=== PATIENT | female | born 2000 | race Two or more races ===

== ENCOUNTER 2022-12-28 15:31 | Outpatient (REF) | payer OTHER, SELFPAY ==
--- NOTE | ~2022-12-28 | MR_ITS ---
EXAMINATION: MR KNEE WITHOUT CONTRAST, RIGHT CLINICAL INFORMATION: Right knee pain. COMPARISON: None available. TECHNIQUE: MRI of the knee without contrast was performed using routine sequences on a high-field scanner. FINDINGS: MENISCI: Medial Meniscus: Intact. Lateral Meniscus: Intact. LIGAMENTS: Cruciate: Intact. Collateral: Intact. EXTENSOR MECHANISM: Intact quadriceps and patellar tendons. No patella moe. TT-TG this is within normal limits measuring up to 1.3 similar. Mild edema within the superolateral aspect of Hoffa's fat pad, which can be seen in the setting of patellar tendon lateral femoral condyle fraction syndrome. ARTICULAR CARTILAGE/BONE: Patellofemoral Compartment: Intact articular cartilage. Medial Compartment: Intact articular cartilage. Lateral Compartment: Intact articular cartilage. JOINT FLUID AND BURSAE: Trace joint effusion. MR/MR knee RT wo con IMPRESSION: 1. No acute meniscal or ligamentous injury. 2. Mild edema within the superolateral aspect of Hoffa's fat pad, which can be seen in the setting of patellar tendon lateral femoral condyle fraction syndrome. 3. Trace joint effusion.
== END 2022-12-28 15:32 | disposition home or self-care (01) ==
LOC: HO.MRI 15:31
PROVIDERS: Visit Provider Family Medicine Sports Medicine
DX: M25.561 Pain in right knee (principal)
CPT/HCPCS: 73721

== ENCOUNTER 2024-03-21 06:57 | Outpatient (REF) | payer OTHER, SELFPAY ==
--- NOTE | ~2024-03-21 | US_ITS ---
EXAMINATION: US PELVIS CLINICAL INFORMATION: Menometrorrhagia. COMPARISON: None available. TECHNIQUE: Ultrasound of the pelvis is performed using both transabdominal and transvaginal transducers along with Doppler. Transvaginal imaging is performed due to inadequate visualization transabdominally. FINDINGS: Uterus: The uterus is anteverted and measures 7.0 x 3.3 x 4.7 cm. The double wall endometrial thickness is 6 mm. The uterus is smooth in contour and has normal myometrial echogenicity. No visible fibroid. Adnexa: Both ovaries are visualized on transabdominal study only, limiting evaluation. Flow is seen in the adnexal regions. There is no gross evidence of ovarian torsion. Trace fluid in the cul-de-sac, nonspecific. Right ovary measures 2.9 x 2.7 x 1.9 cm. Estimated volume measures 8 mL. Left ovary measures 1.9 x 1.1 x 1.8 cm. Estimated volume measures 2 mL US/US pelvic and transvaginal IMPRESSION: Ovaries could not be visualized on transvaginal imaging, limiting evaluation. Left ovary may be smaller than right. Otherwise essentially unremarkable study. Electronically signed by: Lucas Groves MD 03/22/2024 10:26 AM [facility]
== END 2024-03-21 06:58 | disposition home or self-care (01) ==
LOC: HO.UMASIMG 06:57
PROVIDERS: Visit Provider Family Medicine
DX: N92.1 Excessive and frequent menstruation with irregular cycle (principal)
CPT/HCPCS: 76830; 76856